=== PATIENT | male | born 1980 | race American Indian/Alaskan Native ===

== ENCOUNTER 2021-08-20 19:54 | Emergency (ER) | payer SELFPAY ==
[2021-08-20] MEDS ORDERED: ASPIRIN 325 MG TAB PO ONE (20:02)
--- NOTE | 2021-08-20 20:47 | XRay Report ---
CHEST 2 VIEWS INDICATION: chestpain. COMPARISON: None. FINDINGS: Support devices: None. Heart: Within normal limits. Lungs/Pleura: No acute air space or interstitial disease. No significant pleural effusion. IMPRESSION: No acute findings. Signer Name: Giuseppe Cid MD Signed: 08/20/2021 8:42 PM Workstation Name: [id number]
[2021-08-20 20:51] VITALS: BP 118/81
--- NOTE | 2021-08-20 20:53 | Emergency Department Report ---
ED General Adult HPI - General Chief complaint: Chest Pain Stated complaint: CHEST PAIN Time Seen by Provider: 08/20/21 20:24 Source: patient Mode of arrival: Ambulatory Limitations: No Limitations - History of Present Illness Initial comments: Patient is 41 years old male with history of hypertension on amlodipine. Patient presented to the ER stating that he is having chest pain however when I talked to the patient he describes his pain that started in his mid abdomen and went up to his epigastric area and then to the left upper quadrant area. He denied that the pain went to his left chest. Patient denied any shortness of breath. He denied any nausea or vomiting. He stated that his chest pain is completely subsided now. Patient denied any fever or chills. - Related Data Allergies Allergy/AdvReac Type Severity Reaction Status Date / Time No Known Allergies Allergy Unverified 08/20/21 20:02 ED Review of Systems ROS: Stated complaint: CHEST PAIN Other details as noted in HPI Comment: All other systems reviewed and negative Constitutional: denies: chills, fever Respiratory: denies: cough, shortness of breath, SOB with exertion Cardiovascular: denies: chest pain Gastrointestinal: abdominal pain. denies: nausea, vomiting, diarrhea, constipation, hematemesis, melena Musculoskeletal: denies: back pain Neurological: denies: headache, weakness, numbness, paresthesias ED Past Medical Hx - Past Medical History Previous Medical History?: Yes Hx Hypertension: Yes - Surgical History Past Surgical History?: No - Social History Smoking Status: Never Smoker Substance Use Type: None ED Physical Exam - General Limitations: No Limitations General appearance: alert, in no apparent distress - Head Head exam: Present: atraumatic, normocephalic, normal inspection - Eye Eye exam: Present: normal appearance - ENT ENT exam: Present: normal exam, normal orophraynx, mucous membranes moist - Neck Neck exam: Present: normal inspection, full ROM. Absent: tenderness, meningismus - Respiratory Respiratory exam: Present: normal lung sounds bilaterally - Cardiovascular Cardiovascular Exam: Present: regular rate, normal rhythm, normal heart sounds - GI/Abdominal GI/Abdominal exam: Present: soft, normal bowel sounds. Absent: distended, tenderness, guarding, rebound, rigid, organomegaly, mass, bruit, pulsatile mass, hernia - Extremities Exam Extremities exam: Present: normal inspection, full ROM, normal capillary refill. Absent: tenderness - Back Exam Back exam: Present: normal inspection, full ROM. Absent: CVA tenderness (R), CVA tenderness (L) - Neurological Exam Neurological exam: Present: alert, oriented X3, CN II-XII intact, normal gait, reflexes normal. Absent: motor sensory deficit - Psychiatric Psychiatric exam: Present: normal mood - Skin Skin exam: Present: warm, intact, normal color ED Course Vital Signs 08/20/21 08/20/21 19:59 20:50 Temperature 98.2 F Pulse Rate 98 H 68 Respiratory 16 16 Rate Blood Pressure 135/89 Blood Pressure 118/81 [Left] O2 Sat by Pulse 99 100 Oximetry ED Medical Decision Making - Lab Data Result diagrams: 08/20/21 21:26 08/20/21 21:26 - EKG Data -: EKG Interpreted by Me EKG shows normal: sinus rhythm Rate: normal - EKG Data Interpretation: no acute changes - Radiology Data Radiology results: report reviewed - Medical Decision Making Patient is 41 years old male with history of hypertension on amlodipine. Patient presented to the ER stating that he is having chest pain however when I talked to the patient he describes his pain that started in his mid abdomen and went up to his epigastric area and then to the left upper quadrant area. He denied that the pain went to his left chest. Patient denied any shortness of breath. He denied any nausea or vomiting. He stated that his chest pain is completely subsided now. Patient denied any fever or chills. EKG showed no ST elevation or depression. Labs reviewed and is unremarkable including a negative troponin. Chest x-ray is unremarkable. Patient stated that his chest pain and abdominal pain is completely resolved. Patient heart score is 1. Patient symptoms most likely related to gas distention however patient strongly advised to follow-up with his primary doctor for outpatient cardiac work-up. Patient advised to return to the ER if he develop any new symptoms. Critical care attestation.: If time is entered above; I have spent that time in minutes in the direct care of this critically ill patient, excluding procedure time. ED Disposition Clinical Impression: Acute chest pain Disposition: HOME / SELF CARE / HOMELESS Is pt being admited?: No Condition: Stable Instructions: Chest Pain (ED), Nonspecific Chest Pain, Adult Referrals: PRIMARY CARE, [Primary Care Provider] - 3-5 Days
[2021-08-20 22:25] LABS: Basophils % (Auto) 0.3 % (0.0-1.8); Eosinophils # (Auto) 0.2 K/mm3 (0.0-0.4); Eosinophils % (Auto) 1.9 % (0.0-4.3); Hematocrit 39.9 % (35.5-45.6); Lymphocytes # (Auto) 1.6 K/mm3 (1.2-5.4); Lymphocytes % (Auto) 16.5 % (13.4-35.0); Mean Corpuscular HGB Conc 33 % (32-34); Mean Corpuscular Volume 82 fl (84-94); Monocytes # (Auto) 0.8 K/mm3 (0.0-0.8); Monocytes % (Auto) 8.4 % (0.0-7.3); Platelet Count 404 K/mm3 (140-440); Red Blood Count 4.85 M/mm3 (3.65-5.03); Red Cell Distribution Width 15.7 % (13.2-15.2)
[2021-08-20 22:50] LABS: Alanine Aminotransferase 12 units/L (7-56); Albumin 4.3 g/dL (3.9-5); BUN/Creatinine Ratio 13; Blood Urea Nitrogen 13 mg/dL (9-20); Calcium 9.2 mg/dL (8.4-10.2); Hemolysis Index 4
--- NOTE | 2021-08-23 17:24 | Electrocardiograph Report ---
[facility] Test Date: 2021-08-20 Test Time: 20:14:57 Pat Name: ROBERT GERMAIN Department: Room: Gender: M [employer] Chief Engineer: CINDY : 1980 Requested By: MERE LEOS Order Number: [id number] Reading MD: Lizandro Artis Measurements Intervals Diana Rate: 65 P: 56 NC: 158 QRS: 69 QRSD: 97 T: 16 QT: 401 QTc: 416 Interpretive Statements Sinus rhythm No previous ECG available for comparison Electronically Signed On 08-23-2021 17:23:56 EST by Lizandro Artis
== END 2021-08-21 | disposition home or self-care (01) ==
LOC: ED 19:54
DX: R07.89 Other chest pain (principal); I10 Essential (primary) hypertension; Z79.899 Other long term (current) drug therapy
CPT/HCPCS: 36415; 71046; 80053; 84484; 85025; 93005; 93010; 99284